=== PATIENT | female | born 1995 | race African-American/Black ===

== ENCOUNTER 2017-06-26 15:16 | Emergency (ER) | payer OTHER ==
[~2017-06-26] VITALS: Ht 162.6 cm; Wt 57.0 kg
[~2017-06-26 15:16] MED LIST: ACYC200C PO
[2017-06-26 20:00] VITALS: BP 117/63
== END 2017-06-26 20:44 | disposition home or self-care (01) ==
LOC: ER 15:16
DX: A60.00 Herpesviral infection of urogenital system, unspecified (principal)
CPT/HCPCS: 99283

== ENCOUNTER 2017-09-25 22:16 | Emergency (ER) | payer OTHER ==
[~2017-09-25] VITALS: Ht 162.6 cm; Wt 56.0 kg
[2017-09-26 01:00] VITALS: BP 106/64
[2017-09-26] MEDS ORDERED: ACETAMINOPHEN 325MG TABLET PO ONE (01:30)
== END 2017-09-26 02:00 | disposition home or self-care (01) ==
LOC: ER 22:48
DX: S60.211A Contusion of right wrist, initial encounter (principal); F17.210 Nicotine dependence, cigarettes, uncomplicated; Y04.0XXA Assault by unarmed brawl or fight, initial encounter; Y93.89 Activity, other specified; Y92.018 Other place in single-family (private) house as the place of occurrence of the external cause
CPT/HCPCS: 73100; 93005; 99284; Z7610